=== PATIENT | male | born 1990 | race Caucasian/White ===

== ENCOUNTER 2020-03-26 20:08 | Emergency (ER) | payer OTHER ==
[~2020-03-26] VITALS: Ht 170.2 cm; Wt 65.8 kg
[2020-03-26] MEDS ORDERED: NAPROSYN500 MG PO (21:28)
[2020-03-26 21:35] VITALS: BP 120/69
--- NOTE | 2020-03-27 07:37 | EKG ---
[facility] [place] [address] ELECTROCARDIOGRAM REPORT Name: JEN DRISCOLL Room #: DEP [facility]#: [id number] Admission: 03/26/20 Attend Phys: Discharge: 03/26/20 Date of : 88 Report #: [id number] THIS REPORT FOR: cc: ODELL - Lisseth family physician/PCP ODELL - Lisseth family physician/PCP Sebastian Merino MD 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
== END 2020-03-26 21:35 | disposition home or self-care (01) ==
LOC: ER 20:08
DX: M94.0 Chondrocostal junction syndrome [Tietze] (principal); F17.210 Nicotine dependence, cigarettes, uncomplicated; Z91.09 Other allergy status, other than to drugs and biological substances